=== PATIENT | male | born 2000 | race Caucasian/White ===

== ENCOUNTER 2022-08-22 06:55 | Inpatient (IN) ==
--- NOTE | 2022-08-22 07:19 | Emergency Department Note ---
History of Present Illness General Chief complaint: Alcohol Withdrawal Stated complaint: ALCOHOL WITHDRAWAL Time Seen by Provider: 08/22/22 07:12 History of Present Illness Maximum Pain Intensity: 4 This is a 22-year-old male with a history of insulin-dependent type 1 diabetes that presents to the emergency department via private vehicle accompanied by mother with complaints of "alcohol withdrawal". Patient notes that he has been drinking alcohol daily for the past 1.5 years. As of recent he has been drinking 8-10 beers per day. Last drink was 30 hours ago. He decided to quit on his own but now notes that he is feeling nauseated, tingling, some tremors, diaphoresis and some abdominal discomfort. He notes dry heaving but no vomiting. No bleeding that he is aware of. No trauma or injury. He notes that he drank a [employer]el[employer] ultra about 30 hours ago. That was his last drink. Nothing since then. Home Medications Medication Instructions Recorded Confirmed Type insulin aspart U-100 100 unit/mL 1 sliding scale dose subcut 08/31/20 08/22/22 History subcutaneous cartridge (Novolog USEASDIRECTD PenFill U-100 Insulin aspart) Allergies Allergy/AdvReac Type Severity Reaction Status Date / Time No Known Allergies Allergy Mild Unverified 11/15/21 11:28 Past Med/Surg History Medical History Type 1 diabetes Unintentional weight loss Surgical History No pertinent past surgical history Family History Aunt Cancer Grandfather (Paternal) Myocardial infarction Denies family history of Ovarian cancer Prostate cancer Breast cancer Colorectal cancer Social History Smoking Status: Current every day smoker Tobacco Type: Cigarettes Age Started Using Tobacco: 15; packs per day: 0.5; Second Hand Exposure: No; Do You Dip or Chew Tobacco: No; Hx Alcohol Use: Yes Alcohol type: beer Alcohol Intake Frequency: 2-4 x/Month Hx Substance Use: Yes Last Used Substance: Days (ago) Substance Use Type Other :: vape Preferred Language: Georgian Visual Impairment: No Limitations Hearing Ability: Normal Adjutant General Required: No Beliefs That Will Affect Care: None marital status: Single Current Living Situation: Parent current occupational status: employed 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 How many Children do You have: 0 Feels Safe at Home: Yes Childhood Exposure to Second-Hand Smoke: No Diet: regular caffeine: Yes (coffee) during the past year weight has: remained stable Dental Care, Regularly: Yes Physical Activity Frequency: Daily Seatbelt Use: always Sunscreen Use: Yes Review of Systems A total of 10 systems reviewed and were otherwise negative Physical Exam Vital Signs Vital Signs - 24 hr 08/22/22 07:00 08/22/22 07:31 08/22/22 07:40 Temperature 36.9 C Temperature Source Oral Pulse Rate 91 H 61 Pulse Rate from SpO2 Sensor Respiratory Rate 18 Respiratory Effort / Characteristics Non-Labored Respiratory Depth Normal Blood Pressure 153/91 H Blood Pressure Mean 111 Pulse Oximetry 100 99 Oxygen Delivery Method Room Air Room Air Sepsis Recent Fever Within 48 Hours No Sepsis New/Unexplained Change in Mental Status No Sepsis Action Taken by Nursing No Action Required 08/22/22 07:28 08/22/22 07:30 08/22/22 07:30 Temperature Temperature Source Pulse Rate 63 56 L Pulse Rate from SpO2 Sensor 63 57 L Respiratory Rate 23 18 Respiratory Effort / Characteristics Respiratory Depth Blood Pressure 147/89 H Blood Pressure Mean 107 Pulse Oximetry 100 100 Oxygen Delivery Method Sepsis Recent Fever Within 48 Hours Sepsis New/Unexplained Change in Mental Status Sepsis Action Taken by Nursing 08/22/22 08:00 08/22/22 08:00 08/22/22 08:49 Temperature Temperature Source Pulse Rate 58 L 73 Pulse Rate from SpO2 Sensor 56 L 68 Respiratory Rate 15 20 Respiratory Effort / Characteristics Respiratory Depth Blood Pressure 140/101 H Blood Pressure Mean 105 Pulse Oximetry 95 99 Oxygen Delivery Method Sepsis Recent Fever Within 48 Hours Sepsis New/Unexplained Change in Mental Status Sepsis Action Taken by Nursing 08/22/22 08:51 08/22/22 08:51 08/22/22 09:00 Temperature Temperature Source Pulse Rate 58 L Pulse Rate from SpO2 Sensor 59 L Respiratory Rate 13 Respiratory Effort / Characteristics Respiratory Depth Blood Pressure 127/76 155/96 H Blood Pressure Mean 112 114 Pulse Oximetry 99 Oxygen Delivery Method Sepsis Recent Fever Within 48 Hours Sepsis New/Unexplained Change in Mental Status Sepsis Action Taken by Nursing 08/22/22 09:00 08/22/22 09:32 08/22/22 10:00 Temperature Temperature Source Pulse Rate 57 L 86 Pulse Rate from SpO2 Sensor 54 L 88 Respiratory Rate 16 15 Respiratory Effort / Characteristics Respiratory Depth Blood Pressure 149/87 H Blood Pressure Mean 112 Pulse Oximetry 99 98 Oxygen Delivery Method Sepsis Recent Fever Within 48 Hours Sepsis New/Unexplained Change in Mental Status Sepsis Action Taken by Nursing 08/22/22 10:00 08/22/22 10:30 08/22/22 10:30 Temperature Temperature Source Pulse Rate 62 62 Pulse Rate from SpO2 Sensor 63 62 Respiratory Rate 16 19 Respiratory Effort / Characteristics Respiratory Depth Blood Pressure 146/91 H Blood Pressure Mean 104 Pulse Oximetry 99 97 Oxygen Delivery Method Sepsis Recent Fever Within 48 Hours Sepsis New/Unexplained Change in Mental Status Sepsis Action Taken by Nursing VITAL SIGNS - Vital signs and nursing notes were reviewed. Stable and afebrile. GENERAL -22-year-old male appearing his stated age who is in no acute distress. Communicates well with provider and answers questions appropriately. Mild tremor to the left hand noted with arms outstretched. SKIN - Without rashes. No meningeal or petechial rash. HEAD - NC/AT. EYES - PERRL with EOMI bilaterally. Sclera anicteric. EARS - No deformities of external structures noted on gross examination bilat erally. NOSE - Midline and without cyanosis. No epistaxis or purulent drainage noted. MOUTH/OROPHARYNX - Without perioral cyanosis. NECK - Neck with FROM. No nuchal rigidity. LUNGS - Chest wall symmetric without accessory muscle use, intercostals retractions, or central cyanosis. Normal vesicular breath sounds CTA B/L. No wheezes, rales, or rhonchi appreciated. CARDIAC - RRR with S1/S2. No murmur, rubs, or gallops appreciated. ABDOMEN - Abdominal contour normal without pulsations or visible masses. BS normoactive all four quadrants. Lower abdominal tenderness to palpation noted. No palpable masses, hepatosplenomegaly, or ascites noted. EXTREMITIES - No clubbing or peripheral cyanosis. +5/5 strength noted in UE/LE bilaterally. NEUROLOGIC - Cranial nerves II through XII grossly intact. PSYCH - A&Ox3 and cooperates fully with examiner. Pt is very pleasant and interacts well with examiner. Course Administered Medications Insulin Aspart (Insulin, Rapid-Acting Pump) 1 each N/A [facility]; Protocol Stop: 09/21/22 12:44 Last Admin: 08/22/22 13:18 Dose: 1 each Documented By: SASHA Co-signed By: DEMARIO Discontinued Medications Thiamine HCl 100 mg/ Folic (Acid 1 mg/ Sodium Chloride) 1,001.2 mls @ 500 mls/hr IV .Q2H1M FLORY; Protocol Stop: 08/22/22 09:30 Last Infusion: 08/22/22 10:29 Dose: 0 mls/hr Documented By: Admin: 08/22/22 08:10 Dose: 500 mls/hr Documented By: STEVE Famotidine (Pepcid 20mg Iv Push) 20 mg in 5 mls @ 2.5 mls/min IV NOW STA Stop: 08/22/22 07:36 Last Admin: 08/22/22 07:50 Dose: 2.5 mls/min Documented By: STEVE Ioversol (Optiray 320 100ml) 94 ml IV ONCE ONE Stop: 08/22/22 09:33 Last Admin: 08/22/22 09:26 Dose: 94 ml Documented By: CYNTHIA Lorazepam (Lorazepam 2 Mg/1 Ml Vial) 0.5 mg IV NOW STA Stop: 08/22/22 07:31 Last Admin: 08/22/22 07:50 Dose: 0.5 mg Documented By: STEVE Morphine Sulfate (Morphine Sulfate 2 Mg/Ml Carp) 2 mg IV NOW STA Stop: 08/22/22 08:58 Last Admin: 08/22/22 09:10 Dose: 2 mg Documented By: STEVE Multivitamins/Minerals (Cerovite Adv Formula Tab) 1 tab PO ONE STA Stop: 08/22/22 07:31 Last Admin: 08/22/22 07:50 Dose: 1 tab Documented By: STEVE Ondansetron HCl (Ondansetron Inj 2 Mg/Ml 2 Ml Vial) 4 mg IV NOW STA Stop: 08/22/22 08:58 Last Admin: 08/22/22 09:10 Dose: 4 mg Documented By: STEVE Medical Decision Making Laboratory Data 08/22/22 07:25 08/22/22 07:25 Lab Results 08/22/22 08/22/22 08/22/22 Range/Units 07:25 07:25 07:25 WBC 7.52 (4.8-10.8) K/ul RBC 5.78 (4.70-6.10) M/uL Hgb 17.7 (14.0-18.0) g/dl Hct 47.9 (42.0-52.0) % MCV 82.9 (80.0-100.0) fL MCH 30.6 (25.0-34.0) pg MCHC 37.0 H (32.0-36.0) g/dL RDW Std Deviation 35.7 L (36.4-46.3) fL RDW Coeff of [place] 11.8 (11.5-14.5) % Plt Count 150 (130-400) K/uL MPV 12.3 (9.4-12.4) fL Immature Gran % (Auto) 0.3 % Neut % (Auto) 73.0 % Lymph % (Auto) 15.3 % Reagan % (Auto) 9.4 % Eos % (Auto) 1.2 % Baso % (Auto) 0.8 % Neut # (Auto) 5.49 (1.40-6.50) K/uL Lymph # (Auto) 1.15 L (1.2-3.4) K/uL Reagan # (Auto) 0.71 H (0.11-0.59) K/uL Eos # (Auto) 0.09 (0-0.50) K/uL Baso # (Auto) 0.06 (0-0.2) K/uL Immature Gran # (Auto) 0.02 (0.01-0.20) K/uL PT Cancelled INR Cancelled APTT Cancelled PTT Ratio Cancelled Sodium 132 L (136-145) mmol/L Potassium 4.3 (3.5-5.1) mmol/L Chloride 99 (98-107) mmol/L Carbon Dioxide 22 (21-32) mmol/L Anion Gap 11 (3-11) BUN 15 (6-23) mg/dl Creatinine 0.81 (0.6-1.4) mg/dl Est Cr Clr Drug Dosing 124.4 ml/min Est GFR ( Amer) 145.2 ml/min Est GFR (Non-Af Amer) 125.3 ml/min BUN/Creatinine Ratio 18.5 (10-20) Glucose 281 H (70-99(Fasting)) mg/dl Calcium 9.7 (8.6-10.3) mg/dl Magnesium 1.8 (1.7-2.4) mg/dl Total Bilirubin 1.9 H (0.2-1.0) mg/dl AST 131 H (13-39) U/L ALT 154 H (7-52) U/L Alkaline Phosphatase 43 (34-104) U/L Troponin I High Sens < 2.3 (0-20) pg/ml Total Protein 7.1 (6.0-8.3) gm/dl Albumin 4.7 (3.4-5.0) gm/dl Globulin 2.4 L (2.5-4.0) gm/dl Albumin/Globulin Ratio 2.0 (0.9-2) Lipase < 3 L (11-82) U/L TSH (0.300-4.500) uIu/ml Urine Color Urine Appearance (Clear) Urine pH (4.5-7.5) Ur Specific [place] (1.000-1.030) Urine Protein (Negative) Urine Glucose (UA) (Negative) Urine Ketones (Negative) Urine Blood (Negative) Urine Nitrite (Negative) Urine Bilirubin (Negative) Urine Urobilinogen (Negative) Ur Leukocyte Esterase (Negative) Urine WBC (Auto) (0-5) /hpf Urine RBC (Auto) (0-4) /hpf U Hyaline Cast (Auto) (0-5) /lpf U Epithel Cells (Auto) (0-5) /lpf Urine Bacteria (Auto) (Negative) Urine Opiates Screen (Neg) Ur Methadone, Qual (Neg) Urine Barbiturates (Neg) Ur Phencyclidine (PCP) (Neg) U Amphetamin/Meth Scrn (Neg) MDMA (Ecstasy) Screen (Neg) U Benzodiazepines Scrn (Neg) Ur Cocaine Metabolite (Neg) U Marijuana (THC) Screen (Neg) SARS-CoV-2, RNA, NAAT (NEGATIVE) 08/22/22 08/22/22 08/22/22 Range/Units 07:25 08:25 10:08 WBC (4.8-10.8) K/ul RBC (4.70-6.10) M/uL Hgb (14.0-18.0) g/dl Hct (42.0-52.0) % MCV (80.0-100.0) fL MCH (25.0-34.0) pg MCHC (32.0-36.0) g/dL RDW Std Deviation (36.4-46.3) fL RDW Coeff of [place] (11.5-14.5) % Plt Count (130-400) K/uL MPV (9.4-12.4) fL Immature Gran % (Auto) % Neut % (Auto) % Lymph % (Auto) % Reagan % (Auto) % Eos % (Auto) % Baso % (Auto) % Neut # (Auto) (1.40-6.50) K/uL Lymph # (Auto) (1.2-3.4) K/uL Reagan # (Auto) (0.11-0.59) K/uL Eos # (Auto) (0-0.50) K/uL Baso # (Auto) (0-0.2) K/uL Immature Gran # (Auto) (0.01-0.20) K/uL PT 11.9 INR 1.1 APTT 28.5 PTT Ratio 1.0 Sodium (136-145) mmol/L Potassium (3.5-5.1) mmol/L Chloride (98-107) mmol/L Carbon Dioxide (21-32) mmol/L Anion Gap (3-11) BUN (6-23) mg/dl Creatinine (0.6-1.4) mg/dl Est Cr Clr Drug Dosing ml/min Est GFR ( Amer) ml/min Est GFR (Non-Af Amer) ml/min BUN/Creatinine Ratio (10-20) Glucose (70-99(Fasting)) mg/dl Calcium (8.6-10.3) mg/dl Magnesium (1.7-2.4) mg/dl Total Bilirubin (0.2-1.0) mg/dl AST (13-39) U/L ALT (7-52) U/L Alkaline Phosphatase (34-104) U/L Troponin I High Sens (0-20) pg/ml Total Protein (6.0-8.3) gm/dl Albumin (3.4-5.0) gm/dl Globulin (2.5-4.0) gm/dl Albumin/Globulin Ratio (0.9-2) Lipase (11-82) U/L TSH 2.875 (0.300-4.500) uIu/ml Urine Color Urine Appearance (Clear) Urine pH (4.5-7.5) Ur Specific [place] (1.000-1.030) Urine Protein (Negative) Urine Glucose (UA) (Negative) Urine Ketones (Negative) Urine Blood (Negative) Urine Nitrite (Negative) Urine Bilirubin (Negative) Urine Urobilinogen (Negative) Ur Leukocyte Esterase (Negative) Urine WBC (Auto) (0-5) /hpf Urine RBC (Auto) (0-4) /hpf U Hyaline Cast (Auto) (0-5) /lpf U Epithel Cells (Auto) (0-5) /lpf Urine Bacteria (Auto) (Negative) Urine Opiates Screen (Neg) Ur Methadone, Qual (Neg) Urine Barbiturates (Neg) Ur Phencyclidine (PCP) (Neg) U Amphetamin/Meth Scrn (Neg) MDMA (Ecstasy) Screen (Neg) U Benzodiazepines Scrn (Neg) Ur Cocaine Metabolite (Neg) U Marijuana (THC) Screen (Neg) SARS-CoV-2, RNA, NAAT NEGATIVE (NEGATIVE) 08/22/22 08/22/22 Range/Units 10:30 10:30 WBC (4.8-10.8) K/ul RBC (4.70-6.10) M/uL Hgb (14.0-18.0) g/dl Hct (42.0-52.0) % MCV (80.0-100.0) fL MCH (25.0-34.0) pg MCHC (32.0-36.0) g/dL RDW Std Deviation (36.4-46.3) fL RDW Coeff of [place] (11.5-14.5) % Plt Count (130-400) K/uL MPV (9.4-12.4) fL Immature Gran % (Auto) % Neut % (Auto) % Lymph % (Auto) % Reagan % (Auto) % Eos % (Auto) % Baso % (Auto) % Neut # (Auto) (1.40-6.50) K/uL Lymph # (Auto) (1.2-3.4) K/uL Reagan # (Auto) (0.11-0.59) K/uL Eos # (Auto) (0-0.50) K/uL Baso # (Auto) (0-0.2) K/uL Immature Gran # (Auto) (0.01-0.20) K/uL PT INR APTT PTT Ratio Sodium (136-145) mmol/L Potassium (3.5-5.1) mmol/L Chloride (98-107) mmol/L Carbon Dioxide (21-32) mmol/L Anion Gap (3-11) BUN (6-23) mg/dl Creatinine (0.6-1.4) mg/dl Est Cr Clr Drug Dosing ml/min Est GFR ( Amer) ml/min Est GFR (Non-Af Amer) ml/min BUN/Creatinine Ratio (10-20) Glucose (70-99(Fasting)) mg/dl Calcium (8.6-10.3) mg/dl Magnesium (1.7-2.4) mg/dl Total Bilirubin (0.2-1.0) mg/dl AST (13-39) U/L ALT (7-52) U/L Alkaline Phosphatase (34-104) U/L Troponin I High Sens (0-20) pg/ml Total Protein (6.0-8.3) gm/dl Albumin (3.4-5.0) gm/dl Globulin (2.5-4.0) gm/dl Albumin/Globulin Ratio (0.9-2) Lipase (11-82) U/L TSH (0.300-4.500) uIu/ml Urine Color Bath Urine Appearance Cloudy A (Clear) Urine pH 8.5 H (4.5-7.5) Ur Specific [place] 1.026 (1.000-1.030) Urine Protein Negative (Negative) Urine Glucose (UA) 2+ H (Negative) Urine Ketones 3+ H (Negative) Urine Blood Negative (Negative) Urine Nitrite Negative (Negative) Urine Bilirubin Negative (Negative) Urine Urobilinogen Negative (Negative) Ur Leukocyte Esterase Negative (Negative) Urine WBC (Auto) 0 (0-5) /hpf Urine RBC (Auto) 0-4 (0-4) /hpf U Hyaline Cast (Auto) 0 (0-5) /lpf U Epithel Cells (Auto) 0-5 (0-5) /lpf Urine Bacteria (Auto) Negative (Negative) Urine Opiates Screen Neg (Neg) Ur Methadone, Qual Neg (Neg) Urine Barbiturates Neg (Neg) Ur Phencyclidine (PCP) Neg (Neg) U Amphetamin/Meth Scrn Neg (Neg) MDMA (Ecstasy) Screen Neg (Neg) U Benzodiazepines Scrn Neg (Neg) Ur Cocaine Metabolite Neg (Neg) U Marijuana (THC) Screen Pos H (Neg) SARS-CoV-2, RNA, NAAT (NEGATIVE) Imaging Data Radiologist's Impression: Chest/Abdomen X-ray 08/22/22 07:30 PA CHEST WITH ABDOMINAL SERIES CLINICAL HISTORY: Generalized abdominal pain. Alcohol withdrawal. FINDINGS: A PA chest radiograph is compared to study dated 05/22/2021. The cardiomediastinal silhouette is unremarkable. The lungs and pleural spaces are clear. No pneumothorax is seen. The bony thorax is grossly intact. Supine and erect abdominal radiographs are compared to study dated 05/22/2021. There is a nonobstructed abdominal bowel gas pattern. No evidence of intraperitoneal free air is seen. There are no abnormal abdominal calcifications. The lumbosacral spine and bony pelvis appear intact. An electronic device projects over the right groin. IMPRESSION: 1. No active disease in the chest. 2. Nonobstructed abdominal bowel gas pattern. ACT 112: Negative or not required by law. Electronically signed by: Nixon Ellis M.D. 08/22/2022 8:54 AM Abdomen/Pelvis CT 08/22/22 08:57 CT OF THE ABDOMEN AND PELVIS WITH CONTRAST CLINICAL HISTORY: Lower abdominal pain. COMPARISON STUDY: CT of the abdomen and pelvis October 18, 2020 and abdominal series performed earlier today. TECHNIQUE: Following IV administration of 94 mL of Optiray, axial images of the abdomen and pelvis were obtained from the lung bases to the proximal femurs. Images were reviewed in the axial, sagittal, and coronal planes. IV contrast was administered without complication. Automated exposure control was utilized for the study. A dose lowering technique was utilized adhering to the principles of ALARA. CT DOSE: 418.07 mGy.cm FINDINGS: Lung bases are unremarkable. No pneumatosis, free air or portal venous gas is present. There is hepatic steatosis. There is no biliary or pancreatic ductal dilatation. There is mild splenomegaly and possible small collaterals within the abdomen. The adrenal glands, kidneys and pancreas are unremarkable. A small amount of ascites within the pelvis is noted. No fluid collection is present. There is no evidence for a bowel obstruction. The caliber of the appendix is at the upper limits of normal, measuring 6 mm. The appendiceal wall is prominent . Bladder wall thickening is noted. There is no lymphadenopathy. Major vasculature is patent. No acute fractures are identified within the visualized skeletal structures. IMPRESSION: 1. No definite evidence of acute appendicitis. Fluid-filled appendix with prominent appendiceal wall. Caliber of the appendix at the upper limits of normal. Acute appendicitis is considered unlikely however close clinical follow- up is recommended. 2. Hepatic steatosis. Small amount of ascites within the pelvis. Mild splenomegaly and suspected small collaterals within the abdomen. 3. No bowel obstruction. No bowel wall thickening. 4. Bladder wall thickening. This could be correlated with urinalysis. ACT 112: Negative or not required by law. Electronically signed by: Twan Garcia M.D. 08/22/2022 9:57 AM MDM Narrative Patient was seen and evaluated as above in room C06. Review was performed of triage nursing notes and vital signs. After obtaining a thorough history and physical examination the above work up was performed. Patient presents to us today for evaluation of potential alcohol withdrawal in the setting of alcohol use for the past 1.5 years. Patient clinically does have a mild tremor to the left hand with arms outstretched on examination. Last drink was about 30 hours ago per patient. Presentation consistent with that of alcohol use now with withdrawal symptoms starting. Options of care were discussed with the patient. IV access was established. Labs were drawn. There is no leukocytosis or concerning anemia. Coags normal. Mild hyponatremia 132. There is hyperglycemia 281. T. bili elevated at 1.9. Transaminitis noted. EKG performed revealing sinus bradycardia at a rate of 58 bpm. QTc 400. QRS 96. ST elevation noted. This was also reviewed with the attending physician. Early repolarization suspected rather than STEMI. EKG findings today are not felt to represent acute cardiac issue. However, to be thorough, I did add on a chest x-ray with abdominal series in addition to a trop onin. His troponin returned negative at less than 2.3. Chest x-ray was negative. The cardiomediastinal silhouette is unremarkable by x-ray. Patient presentation not consistent with that of acute cardiac etiology. The abdominal pain is lower and has been present for nearly 8 hours now. No chest pain or shortness of breath. In addition, the patient does have lower abdominal pain which may be separate from his withdrawal symptoms. Patient was medicated with IV Ativan for the suspected withdrawal symptoms. In addition, patient was also medicated with IV thiamine, folic acid with IV fluids. Patient also medicated with IV morphine for his abdominal discomfort and also provided Zofran with the morphine. CT scan was obtained of the abdomen/pelvis to further evaluate the patient's lower a bdominal pain. No evidence of acute appendicitis however there is prominent appendiceal wall and the caliber of the appendix is at the upper limits of normal. Acute appendicitis is considered unlikely per CT. I did however discuss this with general surgery that also came to evaluate the patient. Please refer to consult note. Case then discussed with the hospitalist service to further manage the patient's symptoms. Patient amenable to plan of care. Please refer to further documentation regarding his stay. GCS: 15 In the evaluation and treatment of this patient the following differential diagnoses were entertained: Alcohol withdrawal, electrolyte disturbance, acute intrathoracic etiology, acute intra-abdominal etiology, infectious etiology, among others. Impression & Plan Alcohol withdrawal, Abdominal pain Discharge Plan Visit Data Chief Complaint: Alcohol Withdrawal Stated Complaint: ALCOHOL WITHDRAWAL ED Provider: Reid Sullivan ED Midlevel Provider: Chris Hyde Discharge Problem: Alcohol withdrawal, Abdominal pain Patient Disposition: Admitted As Inpatient Condition: Good Discharge Instructions Interventions: ED Discharge Assessment Last Done: 08/22/22 11:57
[2022-08-22] MEDS ORDERED: LORazepam 2 MG/1 ML VIAL IV STA (07:30)
[2022-08-22] MEDS ORDERED: CEROVITE ADV FORMULA TAB PO STA (07:30)
[2022-08-22] MEDS ORDERED: THIAMINE HCL 100 MG, FOLIC ACID 1 MG in SODIUM CHLORIDE 0.9% 1000ML 1,000 ML IV SCH (07:30)
[2022-08-22] MEDS ORDERED: FAMOTIDINE 20MG IV PUSH 20 MG/5 ML SYR IV STA (07:35)
[2022-08-22 08:10] LABS: Anion Gap 11 (3-11); BUN Creatinine Ratio 18.5 (10-20); Blood Urea Nitrogen 15 mg/dl (6-23); Calcium 9.7 mg/dl (8.6-10.3); Carbon Dioxide 22 mmol/L (21-32); Chloride 99 mmol/L (98-107); Creatinine Clr Calc Pharmacy 124.4 ml/min; Est GFR (African American) 145.2 ml/min; Est GFR (Non-African American) 125.3 ml/min; Glucose 281 mg/dl (70-99(Fasting)); Potassium 4.3 mmol/L (3.5-5.1); Sodium 132 mmol/L (136-145)
[2022-08-22 08:15] LABS: Troponin I High Sensitivity < 2.3 pg/ml (0-20)
[2022-08-22 08:28] LABS: Lipase < 3 U/L (11-82)
[2022-08-22 08:46] LABS: Basophils # (auto) 0.06 K/uL (0-0.2); Basophils % (auto) 0.8 %; Eosinophils # (auto) 0.09 K/uL (0-0.50); Eosinophils % (auto) 1.2 %; Hematocrit (blood only) 47.9 % (42.0-52.0); Hemoglobin 17.7 g/dl (14.0-18.0); Immature Granulocytes # (auto) 0.02 K/uL (0.01-0.20); Immature Granulocytes % (auto) 0.3 %; Lymphocytes # (auto) 1.15 K/uL (1.2-3.4); Lymphocytes % (auto) 15.3 %; Mean Corpuscular Hemoglobin 30.6 pg (25.0-34.0); Mean Corpuscular Volume 82.9 fL (80.0-100.0); Mean Platelet Volume 12.3 fL (9.4-12.4); Monocytes # (auto) 0.71 K/uL (0.11-0.59); Monocytes % (auto) 9.4 %; Neutrophils # (auto) 5.49 K/uL (1.40-6.50); Platelet Count 150 K/uL (130-400); RDW Coefficient of Variation 11.8 % (11.5-14.5); RDW Standard Deviation 35.7 fL (36.4-46.3); Red Blood Count 5.78 M/uL (4.70-6.10); White Blood Count 7.52 K/ul (4.8-10.8)
[2022-08-22 08:49] LABS: Alanine Aminotransferase 154 U/L (7-52); Albumin Level 4.7 gm/dl (3.4-5.0); Alkaline Phosphatase 43 U/L (34-104); Aspartate Aminotransferase 131 U/L (13-39); Bilirubin,Total 1.9 mg/dl (0.2-1.0); Globulin 2.4 gm/dl (2.5-4.0); Magnesium 1.8 mg/dl (1.7-2.4); Total Protein 7.1 gm/dl (6.0-8.3)
--- NOTE | 2022-08-22 08:56 | XRay Report ---
PA CHEST WITH ABDOMINAL SERIES CLINICAL HISTORY: Generalized abdominal pain. Alcohol withdrawal. FINDINGS: A PA chest radiograph is compared to study dated 05/22/2021. The cardiomediastinal silhouette is unrema rkable. The lungs and pleural spaces are clear. No pneumothorax is seen. The bony thorax is grossly i ntact. Supine and erect abdominal radiographs are compared to study dated 05/22/2021. There is a nonobstructed abdominal bowel gas pattern. No evidence of intraperitoneal free air is seen. There are no abnormal abdominal calcifications. The lumbosacral spine and bony pelvis appear intact. An electronic device p rojects over the right groin. IMPRESSION: 1. No active disease in the chest. 2. Nonobstructed abdominal bowel gas pattern. ACT 112: Negative or not required by law. Electronically signed by: Nixon Ellis M.D. 08/22/2022 8:54 AM
[2022-08-22] MEDS ORDERED: ONDANSETRON INJ 2 MG/ML 2 ML VIAL IV STA (08:57)
[2022-08-22] MEDS ORDERED: MoRPHine SULFATE 2 MG/ML CARP IV STA (08:57)
[2022-08-22 09:14] LABS: INR 1.1 (0.9-1.1); Partial Thromboplastin Time 28.5 Seconds (21.0-31.0); Prothrombin Time 11.9 Seconds (9.0-12.0)
[2022-08-22] MEDS ORDERED: OPTIRAY 320 100ml IV ONE (09:32)
--- NOTE | 2022-08-22 09:59 | CT Scan Report ---
CT OF THE ABDOMEN AND PELVIS WITH CONTRAST CLINICAL HISTORY: Lower abdominal pain. COMPARISON STUDY: CT of the abdomen and pelvis October 18, 2020 and abdominal series performed [facility] today. TECHNIQUE: Following IV administration of 94 mL of Optiray, axial images of the abdomen and pelvis we re obtained from the lung bases to the proximal femurs. Images were reviewed in the axial, sagittal, and coronal planes. IV contrast was administered without complication. Automated exposure control wa s utilized for the study. A dose lowering technique was utilized adhering to the principles of ALARA . CT DOSE: 418.07 mGy.cm FINDINGS: Lung bases are unremarkable. No pneumatosis, free air or portal venous gas is present. Ther e is hepatic steatosis. There is no biliary or pancreatic ductal dilatation. There is mild splenomega ly and possible small collaterals within the abdomen. The adrenal glands, kidneys and pancreas are un remarkable. A small amount of ascites within the pelvis is noted. No fluid collection is present. The re is no evidence for a bowel obstruction. The caliber of the appendix is at the upper limits of norm al, measuring 6 mm. The appendiceal wall is prominent . Bladder wall thickening is noted. There is no lymphadenopathy. Major vasculature is patent. No acute fractures are identified within the visualize d skeletal structures. IMPRESSION: 1. No definite evidence of acute appendicitis. Fluid-filled appendix with prominent appendiceal wall. Caliber of the appendix at the upper limits of normal. Acute appendicitis is considered unlikely how ever close clinical follow-up is recommended. 2. Hepatic steatosis. Small amount of ascites within the pelvis. Mild splenomegaly and suspected smal l collaterals within the abdomen. 3. No bowel obstruction. No bowel wall thickening. 4. Bladder wall thickening. This could be correlated with urinalysis. ACT 112: Negative or not required by law. Electronically signed by: Twan Garcia M.D. 08/22/2022 9:57 AM
--- NOTE | 2022-08-22 10:26 | History & Physical Report ---
Date of Service August 22, 2022 Assessment & Plan (1) Alcohol abuse: Plan: Omar is a 22-year-old male who presents with tremulousness and stomach pain after daily drinking of 8-10 beers per day and binge drinking on 20 August and going cold turkey thereafter, was recommended for admission for management of alcohol withdrawal and concern for possible appendicitis Alcohol abuse with transaminitis No prior history of transaminitis/LFT elevation. Bilirubin 1.9, AST 131, ALT 154 on admission. No right upper or right lower quadrant tenderness, does have periumbilical tenderness as further discussed below Over the last yearyear and a half has been drinking at least 8-10 beers per day [place]. Last September when a few days without alcohol, otherwise has been drinking daily. Does not have history of seizures or prior alcohol withdrawal On arrival to ER was noted to be tremulous and sweaty. Tremors greatly improved following lorazepam x1, and nearly resolved by time of hospitalist assessment No SI/HI, AH/VH, or asterixis on exam We will treat with active protocol given signs of withdrawal 2 days out from cessation of daily alcohol use initially improved with lorazepam WSS, thiamine daily, folic acid daily Suspect ETOH-induced tranaminitis from binge drinkin on August 20. No signs of overt failure, transaminases trended for afternoon to ensure no rapid rise. Hepatitis panel pending. Hepatic steatosis noted on CT as below. - CT-A/P: 1. No definite evidence of acute appendicitis. Fluid-filled appendix with prominent appendiceal wall. Caliber of the appendix at the upper limits of normal. Acute appendicitis is considered unlikely however close clinical follow- up is recommended. 2. Hepatic steatosis. Small amount of ascites within the pelvis. Mild splenomegaly and suspected small collaterals within the abdomen. 3. No bowel obstruction. No bowel wall thickening. 4. Bladder wall thickening. This could be correlated with urinalysis. Patient agreeable to alcohol cessation support resources and follow-up on d . He seen at [facility] with his mother who is very interested on starting Vivitrol; discussed that prior to this patient would need to move past the acute withdrawal and can follow-up with this with PCP (2) Transaminitis: Plan: Suspect from acute alcohol intake Denies any concurrent Tylenol ingestion, no recent NSAID use. Did take aspirin x1 this morning UA pending (3) Type 1 diabetes: Plan: type I DM Last A1c 8.1% Initially hyperglycemic greater than 200, less than 200 on recheck Patient is comfortable self managing his insulin. We will allow patient to continue his own pump and has replacement supplies brought in from home. If BSG consistently greater than 200 then will transfer to hospital driven control. Clear diet for now with spot glucose checks. Patient has a CGM in place which is functioning normally at time of admission (4) Abdominal pain: Plan: Patient has had recurrent episodes of periumbilical pain which have resolved with conservative care no antibiotics in the past On exam has no right lower quadrant or right rebound tenderness, does redirect to mostly periumbilical pain CT as above is equivocal Dennison score is at most 3 Surgery consulted and will assess. Given no leukocytosis and no fever reasonable to trend. Sweats which are not present at time of admission may be due to alcohol. Continue clinical reassessment Antibiotics deferred given low Dennison score, CT findings, lab work as noted. If persistent pain not improving with treatment of his other comorbidities, reasonable to start Cipro/Flagyl or Zosyn for GI coverage Plan DVT prophylaxis: Low risk, SCDs Diet: Clears Disposition: Medical telemetry while following for alcohol withdrawal/tachycardia CODE STATUS: Full code History of Present Illness Primary Care Provider: ISAIAH Luna Omar is seen with his mother Janie in the ER.. 2 days ago went from daily drinking 2 days ago to none at all/cold turkey Developed numbness tingling all over his hands, stomachache, loss of appetite, sweats, shakes, and mild nausea without vomiting. Having chills but no fevers +Severe night sweats which seem to be improved during the day ETOH: Started as 3 per day upwards to 8-10 beers Flash ultra per day. Stopped 2 days ago. Had a few days last September without etoh otherwise has been drinking daily. Severe shakiness earlier in the ER, improved since ativan. Prompted to stop drinking due to a 'really bad' drinking bindge on the august. After the parade came back and 'crashed for several hours. Doesnt remember exactly how many drinks, at least 15 but doesn't remember. No history of seizures. No prior etoh withdrawals Notes he has had several episodes of periumbilical pain. Has been seen in the ER for nominal pain in the past which has been mostly periumbilical with slightly right lower quadrant category which was not associated with any leukocytosis and which has resolved with bland diet and conservative care without antibiotics. Hx of T1DM with insulin pump and sensor. Prefers to manage thsi on his home rather than convert to hospital glycemic control. BSG improved to <200. No heart problems. No lung problems. Hx of reflux as a child which went away. No chronic meds for this and no recent recurrence. No bloody or black bowel movements in the last year. Went ot the doctor a little over a year ago for coffee ground/black BMs, was placed on antiacid medicine and went away. No history of EGD. No history of tranaminitis to his knowledge. Took baby aspirin last night ~1am because thought it might help with the alcohol symptoms. No tylenol. NO history of chest pain or exertional chest pain No history of wheezing/asthma. Bms normally twice daily, has not had one daily. Last BM was yesterday, firm/solid and brown. No recent sarah colored/white BMs or diarrhea. Medical History: Reviewed Medications: Reviewed Surgical History: Reviewed. No hx of surgery. Family history: Reviewed. Father with T1DM. Father and PGF with ID in 70s. MGM with alzheimers from ministrokes and strokes beginning in 70s. Allergies: Reviewed. NKMA. Social History: Vapes few times per day. Uses nicotine Juul. Rare THC from dispensary. No cigarette. No other recreational drug use. ETOH as noted above. Code Status: Full Allergies Allergy/AdvReac Type Severity Reaction Status Date / Time No Known Allergies Allergy Mild Unverified 11/15/21 11:28 Home Medications Medication Instructions Recorded Confirmed Type insulin aspart U-100 100 unit/mL 1 sliding scale dose subcut 08/31/20 08/22/22 History subcutaneous cartridge (Novolog USEASDIRECTD PenFill U-100 Insulin aspart) Past Med/Surg History Medical History Type 1 diabetes Unintentional weight loss Surgical History No pertinent past surgical history Family History Aunt Cancer Grandfather (Paternal) Myocardial infarction Denies family history of Ovarian cancer Prostate cancer Breast cancer Colorectal cancer Social History Smoking Status: Current every day smoker Tobacco Type: Cigarettes Age Started Using Tobacco: 15; packs per day: 0.5; Second Hand Exposure: No; Do You Dip or Chew Tobacco: No; Hx Alcohol Use: Yes Alcohol Intake Frequency: 2-4 x/Month Hx Substance Use: No Preferred Language: Vietnamese Visual Impairment: No Limitations Hearing Ability: Normal Container Coordinator Required: No Beliefs That Will Affect Care: None marital status: Single Current Living Situation: Family current occupational status: employed 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 NAD. Cooperative. HEENT: Atraumatic, normocephalic. Vision/hearing grossly intact Pulm: CTAB A&P. -wheezes, -rales, -rhonchi. Symmetrical chest rise. No increased work of breathing. No respiratory distress. Cardiac: RRR, -mrg. Radial pulses intact and symmetrical. Abdominal: Periumbilical tenderness, soft, no rebound tenderness. Denies right lower quadrant tenderness and redirects to periumbilic as a source of pain. Bowel sounds intact Extremities: Warm, dry. Is not tremulous at time of exam. Moves all extremities equally, sensation soft touch intact in hands and feet without asymmetry. Drafter Civil (Cad) strength, ankle dorsiflexion/plantarflexion intact bilaterally Results & Data Results & Data Vital Signs (Past 12 Hours) Vital Signs Temp Pulse Resp BP Pulse Ox O2 Del Method 08/22/22 07:40 99 Room Air 08/22/22 07:31 61 08/22/22 07:00 36.9 C 91 H 18 153/91 H 100 Room Air PG Care Time/CCT Total # of Minutes Spent Total Time Spent with Patient: Total time spent is greater than 50% in coordination of care (as documented) at patient's floor/unit and/or counseling patient: Coding Level of Care Code 60889 INT INP/OBS CARE MIN Diagnoses Alcohol abuse F10.10 Transaminitis R74.01 Type 1 diabetes E10.9 Abdominal pain R10.9
[2022-08-22] MEDS ORDERED: MoRPHine SULFATE 2 MG/ML CARP IV PRN (11:10)
[2022-08-22 11:31] LABS: Appearance Urine Cloudy (Clear); Bacteria Urine Automated Negative (Negative); Bilirubin Urine Negative (Negative); Blood Urine Negative (Negative); Cast Urine Automated 0 /lpf (0-5); Color Urine Orange; Epithelial Cell Urine Auto 0-5 /lpf (0-5); Glucose Urine UA 2+ (Negative); Ketones Urine 3+ (Negative); Leukocyte Esterase Urine Negative (Negative); Nitrite Urine Negative (Negative); Protein Urine Negative (Negative); RBC Urine Automated 0-4 /hpf (0-4); Specific Gravity Urine 1.026 (1.000-1.030); Urobilinogen Urine Negative (Negative); WBC Urine Automated 0 /hpf (0-5); pH Urine 8.5 (4.5-7.5)
[2022-08-22] MEDS ORDERED: LORazepam 2 MG/1 ML VIAL IV PRN ×3 (12:32)
[2022-08-22] MEDS ORDERED: Ativan IV Alcohol Withdrawal--Active Protocol IV PRN (12:32)
[2022-08-22] MEDS ORDERED: GLUCAGON FOR INJ 1 MG VIAL IM PRN (12:45)
[2022-08-22] MEDS ORDERED: CARBOHYDRATES FOR HYPOGLYCEMIA PO PRN (12:45)
[2022-08-22] MEDS ORDERED: GLUCOSE 40% GEL 15 GM TUBE PO PRN (12:45)
[2022-08-22] MEDS ORDERED: INSULIN ASPART 100 UNITS/ML VIAL SC PRN (12:45)
[2022-08-22] MEDS ORDERED: GLUCOSE 10 TAB/TUBE PO PRN (12:45)
[2022-08-22] MEDS ORDERED: DEXTROSE 50% 50 ML SYRINGE IV PRN (12:45)
--- NOTE | 2022-08-22 13:03 | Surgery Consultation ---
Date of Consultation August 22, 2022 Assessment & Plan (1) Alcohol abuse: (2) Alcohol withdrawal: (3) Abdominal pain: Plan 22 year-old male presented to ed for alcohol withdrawal with some mild abdominal discomfort found to have prominent fluid filled appendix without definite evidence of acute appendicitis on CT scan. afebrile, no leukocytosis. Pain is mostly periumbilical and actually LLQ on examination. Plan: Given that patient is afebrile with no leukocytosis, no definite evidence of appendicitis on CT scan, and clinical exam unlikely this is acute appendicitis. Would recommend close monitoring and conservative management . Could consider IV antibiotics. Continue medical management for alcohol withdrawal repeat am labs will follow along Dr. Richardson has seen and examined pt, agrees with above. Supervising Physician Co-Signing Physician Notes I have seen and examined the patient personally and agree with the above assessment and plan. There is no evidence for appendicitis, and his pain is on the left side. We would not recommend a laparoscopic exploration or appendectomy at this time. We will continue to follow with conservative management. History of Present Illness Reason for Consultation: abdominal pain, possible appendicitis Requesting Physician: Chris Hyde Attending Physician: Los Benedict MD History of Present Illness Maxwell is a 22 yo male who presented to emergency department for alcohol withdrawal. He has been drinking 8-10 beers daily for 1.5 years. Binge drank on August 20 and then suddenly stopped cold turkey. He presented to ED with nausea, tingling, some tremors, diaphoresis and some abdominal discomfort. CT scan of abdomen and pelvis was obtained due to abdominal pain and examination which showed prominent fluid filled appendix measuring 6 mm with prominent wall. No definite evidence of acute appendicitis. Maxwell states he is having mostly pain in periumbilical region, pain has occurred in past but resolved on its own. No changes in bowel habits, fevers, or chills at home. No prior history of abdominal surgery. Last ate at 6 am this morning without abdominal pain. Allergies Allergy/AdvReac Type Severity Reaction Status Date / Time No Known Allergies Allergy Mild Unverified 11/15/21 11:28 Home Medications Medication Instructions Recorded Confirmed Type insulin aspart U-100 100 unit/mL 1 sliding scale dose subcut 08/31/20 08/22/22 History subcutaneous cartridge (Novolog USEASDIRECTD PenFill U-100 Insulin aspart) Patient History Medical History Type 1 diabetes Unintentional weight loss Surgical History No pertinent past surgical history Family History Aunt Cancer Grandfather (Paternal) Myocardial infarction Denies family history of Ovarian cancer Prostate cancer Breast cancer Colorectal cancer Social History Smoking Status: Current every day smoker Tobacco Type: Cigarettes Age Started Using Tobacco: 15; packs per day: 0.5; Second Hand Exposure: No; Do You Dip or Chew Tobacco: No; Hx Alcohol Use: Yes Alcohol type: beer Alcohol Intake Frequency: 2-4 x/Month Hx Substance Use: Yes Last Used Substance: Days (ago) Substance Use Type Other:: vape Preferred Language: Lebanese Visual Impairment: No Limitations Hearing Ability: Normal Signing Teacher Required: No Beliefs That Will Affect Care: None marital status: Single Current Living Situation: Parent current occupational status: employed 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 How many Children do You have: 0 Feels Safe at Home: Yes Childhood Exposure to Second-Hand Smoke: No Diet: regular caffeine: Yes (coffee) during the past year weight has: remained stable Dental Care, Regularly: Yes Physical Activity Frequency: Daily Seatbelt Use: always Sunscreen Use: Yes Review of Systems Review of Systems: All systems reviewed & are unremarkable except as noted in HPI & below Physical Exam Constitutional: WD/WN, vitals as above cooperative and comfortable; no acute distress and not frail appearing Neck: normal visual inspection and trachea midline Respiratory: normal respiratory effort, lungs clear to auscultation Cardiovascular: RRR, no murmur, no edema Gastrointestinal (Abdomen): Inspection/Auscultation: abdomen normal to inspection; abdomen not distended and no visible herniation Percussion/Palpation: + abdomen tender (mild tenderness at umbilical and LLQ, no RLQ abdominal pain ) and abdomen soft; no guarding, abdomen not rigid and abdomen not firm negative Mcburneys point or Rosvigs Skin: no rashes, warm and dry Psychiatric: Orientation: alert and oriented x 3 Results & Data Vital Signs (Past 12 Hours) Vital Signs Temp Pulse Pulse Resp BP BP Pulse Ox 08/22/22 12:35 36.8 C 60 18 144/84 H 98 08/22/22 11:57 82 20 126/72 08/22/22 11:24 52 L 08/22/22 10:30 62 19 97 08/22/22 10:30 146/91 H 08/22/22 10:00 62 16 99 08/22/22 10:00 149/87 H 08/22/22 09:32 86 15 98 08/22/22 09:00 57 L 16 99 08/22/22 09:00 155/96 H 08/22/22 08:51 127/76 08/22/22 08:51 58 L 13 99 08/22/22 08:49 73 20 99 08/22/22 08:00 58 L 15 95 08/22/22 08:00 140/101 H 08/22/22 07:30 56 L 18 100 08/22/22 07:30 147/89 H 08/22/22 07:28 63 23 100 08/22/22 07:40 99 08/22/22 07:31 61 08/22/22 07:00 36.9 C 91 H 18 153/91 H 100 O2 Del Method 08/22/22 12:35 Room Air 08/22/22 11:57 08/22/22 11:24 08/22/22 10:30 08/22/22 10:30 08/22/22 10:00 08/22/22 10:00 08/22/22 09:32 08/22/22 09:00 08/22/22 09:00 08/22/22 08:51 08/22/22 08:51 08/22/22 08:49 08/22/22 08:00 08/22/22 08:00 08/22/22 07:30 08/22/22 07:30 08/22/22 07:28 08/22/22 07:40 Room Air 08/22/22 07:31 08/22/22 07:00 Room Air Diagnostic Findings CT OF THE ABDOMEN AND PELVIS WITH CONTRAST CLINICAL HISTORY: Lower abdominal pain. COMPARISON STUDY: CT of the abdomen and pelvis October 18, 2020 and abdominal series performed earlier today. TECHNIQUE: Following IV administration of 94 mL of Optiray, axial images of the abdomen and pelvis were obtained from the lung bases to the proximal femurs. Images were reviewed in the axial, sagittal, and coronal planes. IV contrast was administered without complication. Automated exposure control was utilized for the study. A dose lowering technique was utilized adhering to the principles of ALARA. CT DOSE: 418.07 mGy.cm FINDINGS: Lung bases are unremarkable. No pneumatosis, free air or portal venous gas is present. There is hepatic steatosis. There is no biliary or pancreatic ductal dilatation. There is mild splenomegaly and possible small collaterals within the abdomen. The adrenal glands, kidneys and pancreas are unremarkable. A small amount of ascites within the pelvis is noted. No fluid collection is present. There is no evidence for a bowel obstruction. The caliber of the appendix is at the upper limits of normal, measuring 6 mm. The appendiceal wall is prominent . Bladder wall thickening is noted. There is no lymphadenopathy. Major vasculature is patent. No acute fractures are identified within the visualized skeletal structures. IMPRESSION: 1. No definite evidence of acute appendicitis. Fluid-filled appendix with prominent appendiceal wall. Caliber of the appendix at the upper limits of normal. Acute appendicitis is considered unlikely however close clinical follow- up is recommended. 2. Hepatic steatosis. Small amount of ascites within the pelvis. Mild splenomegaly and suspected small collaterals within the abdomen. 3. No bowel obstruction. No bowel wall thickening. 4. Bladder wall thickening. This could be correlated with urinalysis.
[2022-08-22] MEDS: INSULIN, Rapid-Acting PUMP SCH ×3 (13:18→22:38)
[2022-08-22 13:43] LABS: Amphetamines+Metham, Urine Neg (Neg); Barbiturates, Urine Neg (Neg); Benzodiazepine, Urine Neg (Neg); Cocaine, Urine Neg (Neg); MDMA (Ecstacy), Urine Neg (Neg); Methadone, Urine Neg (Neg); Opiate, Urine Neg (Neg); Phencyclidine, Urine Neg (Neg)
[2022-08-22 15:28] LABS: Alanine Aminotransferase 116 U/L (7-52); Albumin Level 3.9 gm/dl (3.4-5.0); Alkaline Phosphatase 39 U/L (34-104); Aspartate Aminotransferase 75 U/L (13-39); Bilirubin Direct 0.3 mg/dl (0-0.2); Bilirubin,Total 1.5 mg/dl (0.2-1.0); Total Protein 5.9 gm/dl (6.0-8.3)
[2022-08-22] MEDS ORDERED: INSULIN, Rapid-Acting PUMP SCH (16:30)
[2022-08-22] MEDS: NICOTINE POLACRILEX 2 MG GUM MT PRN ×2 (16:54→20:02)
[2022-08-22 17:28] LABS: Troponin I High Sensitivity < 2.3 pg/ml (0-20)
[2022-08-22] MEDS ORDERED: MELATONIN 3 MG TAB PO PRN (22:41)
[2022-08-23 08:19] LABS: Albumin Globulin Ratio 1.9 (0.9-2); Albumin Level 4.1 gm/dl (3.4-5.0); BUN Creatinine Ratio 12.2 (10-20); Bilirubin,Total 1.6 mg/dl (0.2-1.0); Creatinine Clr Calc Pharmacy 116.9 ml/min; Est GFR (African American) 144.5 ml/min; Est GFR (Non-African American) 124.6 ml/min; Globulin 2.2 gm/dl (2.5-4.0); Magnesium 1.9 mg/dl (1.7-2.4); Potassium 4.4 mmol/L (3.5-5.1); Total Protein 6.3 gm/dl (6.0-8.3)
[2022-08-23 08:21] LABS: Basophils # (auto) 0.04 K/uL (0-0.2); Eosinophils % (auto) 2.4 %; Hematocrit (blood only) 47.1 % (42.0-52.0); Hemoglobin 16.5 g/dl (14.0-18.0); Immature Granulocytes # (auto) 0.01 K/uL (0.01-0.20); Immature Granulocytes % (auto) 0.2 %; Lymphocytes # (auto) 1.26 K/uL (1.2-3.4); Lymphocytes % (auto) 30.4 %; Mean Corpuscular Hemoglobin 30.6 pg (25.0-34.0); Mean Corpuscular Volume 87.4 fL (80.0-100.0); Mean Platelet Volume 12.2 fL (9.4-12.4); Monocytes # (auto) 0.43 K/uL (0.11-0.59); Monocytes % (auto) 10.4 %; Neutrophils # (auto) 2.31 K/uL (1.40-6.50); Neutrophils % (auto) 55.6 %; Platelet Count 116 K/uL (130-400); RDW Coefficient of Variation 11.8 % (11.5-14.5); RDW Standard Deviation 37.9 fL (36.4-46.3); Red Blood Count 5.39 M/uL (4.70-6.10); White Blood Count 4.15 K/ul (4.8-10.8)
[2022-08-23] MEDS: INSULIN, Rapid-Acting PUMP SCH ×3 (08:39→17:26)
--- NOTE | 2022-08-23 08:47 | Communication Note ---
Date of Service: August 23, 2022 Chart reviewed, patient not examined. Afebrile, no leukocytosis on labs this morning. Ct scan with no definite evidence of acute appendicitis and his pain was more fredy- umbilical and left lower sided yesterday. Has had similar pain in past. Continue medical management for alcohol withdrawal. Our services signing off.
[2022-08-23] MEDS ORDERED: FOLIC ACID 1 MG in SYRINGE 9.8 ML IV SCH (09:00)
[2022-08-23] MEDS ORDERED: THIAMINE HCL 100 MG in SYRINGE 9 ML IV SCH (09:00)
[2022-08-23 12:16] LABS: HBSAG NON-REACTIVE (NON-REACTIVE); Hepatitis A Antibody IgM NON-REACTIVE (NON-REACTIVE); Hepatitis B Core Antibody IgM NON-REACTIVE (NON-REACTIVE)
[2022-08-23] MEDS: NICOTINE POLACRILEX 2 MG GUM MT PRN ×2 (12:57→18:32)
[2022-08-23 17:23] LABS: Basophils # (auto) 0.05 K/uL (0-0.2); Basophils % (auto) 1.2 %; Eosinophils # (auto) 0.08 K/uL (0-0.50); Hematocrit (blood only) 46.8 % (42.0-52.0); Hemoglobin 16.7 g/dl (14.0-18.0); Immature Granulocytes # (auto) 0.01 K/uL (0.01-0.20); Immature Granulocytes % (auto) 0.2 %; Lymphocytes # (auto) 1.08 K/uL (1.2-3.4); Lymphocytes % (auto) 26.5 %; Mean Corpuscular Hemoglobin 30.5 pg (25.0-34.0); Mean Corpuscular Hgb Conc 35.7 g/dL (32.0-36.0); Mean Corpuscular Volume 85.4 fL (80.0-100.0); Mean Platelet Volume 11.8 fL (9.4-12.4); Monocytes % (auto) 9.8 %; Neutrophils # (auto) 2.45 K/uL (1.40-6.50); Neutrophils % (auto) 60.3 %; Platelet Count 124 K/uL (130-400); RDW Coefficient of Variation 11.5 % (11.5-14.5); RDW Standard Deviation 36.1 fL (36.4-46.3); Red Blood Count 5.48 M/uL (4.70-6.10); White Blood Count 4.07 K/ul (4.8-10.8)
--- NOTE | 2022-08-23 17:34 | XCELERA ---
[id number] \\[id number]
--- NOTE | 2022-08-23 19:10 | Discharge Summary ---
Date of Service August 23, 2022 Admission HPI Per Admitting Provider Omar is seen with his mother Janie in the ER.. 2 days ago went from daily drinking 2 days ago to none at all/cold turkey Developed numbness tingling all over his hands, stomachache, loss of appetite, sweats, shakes, and mild nausea without vomiting. Having chills but no fevers +Severe night sweats which seem to be improved during the day ETOH: Started as 3 per day upwards to 8-10 beers Flash ultra per day. Stopped 2 da ys ago. Had a few days last September without etoh otherwise has been drinking daily. Severe shakiness earlier in the ER, improved since ativan. Prompted to stop drinking due to a 'really bad' drinking bindge on the august. After the parade came back and 'crashed for several hours. Doesnt remember exactly how many drinks, at least 15 but doesn't remember. No history of seizures. No prior etoh withdrawals Notes he has had several episodes of periumbilical pain. Has been seen in the ER for nominal pain in the past which has been mostly periumbilical with slightly right lower quadrant category which was not associated with any leukocytosis and which has resolved with bland diet and conservative care without antibiotics. Hx of T1DM with insulin pump and sensor. Prefers to manage thsi on his home rather than convert to hospital glycemic control. BSG improved to <200. No heart problems. No lung problems. Hx of reflux as a child which went away. No chronic meds for this and no recent recurrence. No bloody or black bowel movements in the last year. Went ot the doctor a little over a year ago for coffee ground/black BMs, was placed on antiacid medicine and went away. No history of EGD. No history of tranaminitis to his knowledge. Took baby aspirin last night ~1am because thought it might help with the alcohol symptoms. No tylenol. NO history of chest pain or exertional chest pain No history of wheezing/asthma. Bms normally twice daily, has not had one daily. Last BM was yesterday, firm/solid and brown. No recent sarah colored/white BMs or diarrhea. Medical History: Reviewed Medications: Reviewed Surgical History: Reviewed. No hx of surgery. Family history: Reviewed. Father with T1DM. Father and PGF with ID in 70s. MGM with alzheimers from ministrokes and strokes beginning in 70s. Allergies: Reviewed. NKMA. Social History: Vapes few times per day. Uses nicotine Juul. Rare THC from dispensary. No cigarette. No other recreational drug use. ETOH as noted above. Code Status: Full Discharge Data Allergies Allergy/AdvReac Type Severity Reaction Status Date / Time No Known Allergies Allergy Mild Unverified 11/15/21 11:28 Consultations 08/22/22 10:01 ED Decision to Admit Stat Ordered Studies 08/22/22 08:57 CT abd pelvis IV con only Stat Hospital Course (1) Alcohol abuse: Omar is a 22-year-old male who presents with tremulousness and stomach pain after daily drinking of 8-10 beers per day and binge drinking on 20 August and going cold turkey thereafter, was recommended for admission for management of alcohol withdrawal and concern for possible appendicitis Alcohol abuse with transaminitis No prior history of transaminitis/LFT elevation. Bilirubin 1.9, AST 131, ALT 154 on admission. No right upper or right lower quadrant tenderness, does have periumbilical tenderness as further discussed below Over the last yearyear and a half has been drinking at least 8-10 beers per day Veracode. Last September when a few days without alcohol, otherwise has been drinking daily. Does not have history of seizures or prior alcohol withdrawal On arrival to ER was noted to be tremulous and sweaty. Tremors greatly improved following lorazepam x1, and nearly resolved by time of hospitalist assessment No SI/HI, AH/VH, or asterixis on exam We will treat with active protocol given signs of withdrawal 2 days out from cessation of daily alcohol use initially improved with lorazepam WSS, thiamine daily, folic acid daily Suspect ETOH-induced tranaminitis from binge drinkin on August 20. No signs of overt failure, transaminases trended for afternoon to ensure no rapid rise. Hepatitis panel pending. Hepatic steatosis noted on CT as below. - CT-A/P: 1. No definite evidence of acute appendicitis. Fluid-filled appendix with prominent appendiceal wall. Caliber of the appendix at the upper limits of normal. Acute appendicitis is considered unlikely however close clinical follow- up is recommended. 2. Hepatic steatosis. Small amount of ascites within the pelvis. Mild splenomegaly and suspected small collaterals within the abdomen. 3. No bowel obstruction. No bowel wall thickening. 4. Bladder wall thickening. This could be correlated with urinalysis. Patient agreeable to alcohol cessation support resources and follow-up on discharge. He seen at [facility] with his mother who is very interested on starting Vivitrol; discussed that prior to this patient would need to move past the acute withdrawal and can follow-up with this with PCP (2) Transaminitis: Suspect from acute alcohol intake Denies any concurrent Tylenol ingestion, no recent NSAID use. Did take aspirin x1 this morning UA pending (3) Type 1 diabetes: type I DM Last A1c 8.1% Initially hyperglycemic greater than 200, less than 200 on recheck Patient is comfortable self managing his insulin. We will allow patient to continue his own pump and has replacement supplies brought in from home. If BSG consistently greater than 200 then will transfer to hospital driven control. Clear diet for now with spot glucose checks. Patient has a CGM in place which is functioning normally at time of admission (4) Abdominal pain: Patient has had recurrent episodes of periumbilical pain which have resolved with conservative care no antibiotics in the past On exam has no right lower quadrant or right rebound tenderness, does redirect to mostly periumbilical pain CT as above is equivocal Dennison score is at most 3 Surgery consulted and will assess. Given no leukocytosis and no fever reasonable to trend. Sweats which are not present at time of admission may be due to alcohol. Continue clinical reassessment Antibiotics deferred given low Dennison score, CT findings, lab work as noted. If persistent pain not improving with treatment of his other comorbidities, reasonable to start Cipro/Flagyl or Zosyn for GI coverage (5) Underweight: BMI 18.7 (6) Severe protein-calorie malnutrition: 64.9 Kg in July 2021 now 59 kg consider w/u for celiac disease, debbie's (although no electrolyte abnormalities that suggest such), etc in light of abnormal appendix consider GI f/u for repeat colonoscopy to r/o IBD Plan DVT prophylaxis: Low risk, SCDs Diet: Clears Disposition: Medical telemetry while following for alcohol withdrawal/tachycardia CODE STATUS: Full code Discharge Plan Discharge Items Patient Disposition: Home - Self-Care Reason For Visit: ABDOMINAL PAIN, ?APPENDICITIS Discharge Diagnosis: 1. abdominal pain - resolved; due to constipation? intestinal spasm? gastritis (irritation of stomach due to alcohol)? 2. concern for appendicitis - ruled out; repeat CT of abdomen & pelvis recommended to recheck appendix 3. low white blood cell count, low platelets - due to viral infection? due to alcohol? 4. abnormal liver function tests - due to heavy alcohol use 5. enlarged spleen - highly concerning for early, developing liver disease - please follow-up with gastroenterology 6. type 1 diabetes Condition on Discharge: Good Activity: Resume your previous activity Non-emergency contact: Primary Care Provider Call non-emergency contact if: you have any medication questions and your symptoms worsen Follow-up/Referrals: Pasquale Husain CRNP [Primary Care Provider] - 09/06/22 10:00 am (you will be seeing MARCELA Goodrich, on this date at the [place] office) Dudley Quintanilla MD [Physician] - (strongly recommend follow-up with Dr Quintanilla (you saw him in 2020) for your liver & spleen ) Diet: Carb Count or DM1 Addtl Attending Provider Instructions: Mr Salinas, You were hospitalized due to a host of symptoms including sweats, shakes, nausea, abdominal pain, etc. It was uncertain if you were experiencing alcohol withdrawal or perhaps you had a viral illness. Your symptoms improved relatively quickly over a 24-hour period. A CT scan of your abdomen was taken due to your abdominal pain and it showed a mildly abnormal appendix as well as enlarged liver and enlarged spleen. General surgery saw you in consult and determined that it was unlikely that you had appendicitis. The enlarged liver and spleen is likely from alcohol usage. The abnormal blood counts (platelets, white count) could be from a virus or from alcohol. You are now tolerating a diet and your abdominal pain has resolved. Your diabetes has been under good control while here. You did not have "DKA" while here. Recommendations: 1. please abstain from alcohol 100% if at all possible. Please talk to your outpatient providers about available options to help keep you abstinent from alcohol. 2. take omeprazole 20mg once daily x 2 weeks. This will treat gastritis if your pain was due to stomach irritation. 3. take thiamine 200mg twice daily x 30 days. 4. have a blood draw in 1 week; I will place lab orders in your chart; you can have the labs done at the [facility] office. 5. have a repeat CT scan of your abdomen & pelvis in 4-6 weeks to recheck your appendix. Your outpatient providers can arrange this. Return to [facility] if - * you have fevers over 100 degrees * you have recurrent abdominal pain, nausea or vomiting * any other concerns Pending Studies at Discharge: No Stand-Alone Forms: My [facility], Smoking Cessation Medications and DC Order Prescriptions: New thiamine HCl (vitamin B1) 100 mg tablet 200 mg PO BID 30 Days Qty: 120 0RF omeprazole 20 mg capsule,delayed release(DR/EC) 20 mg PO DAILY Qty: 14 0RF Rx Instructions: take first thing in am Continued insulin aspart U-100 [Novolog PenFill U-100 Insulin] 100 unit/mL cartridge 1 sliding scale dose subcut USEASDIRECTD Rx Instructions: Per pt he uses it with a pump. Discharge Orders: Discharge Order (Routine); Ordered 08/23/22 Ordered By: Gato Ferguson Admission Data Admit Date/Time: 08/22/22 11:10 Attending Provider: Gato Ferguson Admit Provider: [place] Benedict Primary Care Provider: Pasquale Husain Other Providers: [place] Benedict Other Interventions: Discharge Summary Assessment (RN) Last Done: 08/23/22 19:10 Coding Diagnoses Alcohol abuse F10.10 Transaminitis R74.01 Type 1 diabetes E10.9 Abdominal pain R10.9 Underweight R63.6 Severe protein-calorie malnutrition E43
[2022-08-23 22:57] LABS: Marijuana Quant, GCMS Urine 305 ng/mL (<5)
--- NOTE | 2022-08-23 23:32 | Electrocardiogram Report ---
Test Reason : Blood Pressure : / mmHG Vent. Rate : 058 BPM Atrial Rate : 058 BPM P-R Int : 128 ms QRS Dur : 096 ms QT Int : 408 ms P-R-T Axes : -14 096 074 degrees QTc Int : 400 ms Sinus bradycardia Rightward axis RSR' or QR pattern in V1 suggests right ventricular conduction delay ST elevation, consider early repolarization, pericarditis, or injury Abnormal ECG No previous ECGs available Confirmed by Jose Rodriguez ([id number]) on 08/23/2022 11:31:51 PM Referred By: REFERRED SELF Confirmed By:Jose Rodriguez
== END 2022-08-23 20:08 | disposition home or self-care (01) | DRG 896 ==
LOC: ED 06:55 → 2W 11:10 → SUATTDRO 11:10 → 2W 11:57